=== PATIENT | male | born 1950 | race Caucasian/White ===

== ENCOUNTER 2018-08-10 22:08 | Emergency (ER) | payer MEDICARE ==
[~2018-08-10] VITALS: Ht 170.2 cm; Wt 127.0 kg
[~2018-08-10 22:08] MED LIST: ALBIPROI INH; ALBU3IS INH; ASPI81EC PO; ATEN25 PO; ATOR10 PO; ATOR20 PO; CEPH500 PO; CLOT1TL TOP; DOCU100 PO; DOXY100T53 PO; FENO145 PO; FISH1000 PO; FLUT.05NI; FURO40 PO; INSU7030P SUBQ; INSUAS7030 SC; INSULANI SUBQ; INSULANPEN SC; LEVSOD25 PO; LEVSOD50 PO; LISI5 PO; LORA10 PO; MECL12.5 PO; METO10 PO; METO50ER PO; MORP15ER PO; MORP30ER PO; NORT25 PO; OMEG1CAP30 PO; OMEP20ER PO; PHENY50CH PO; POTCHL10ER PO; SILD50TA PO; TAMS.4ER PO; TERA5 PO; ZOLP10 PO
[2018-08-10 23:18] LABS: BASOPHILS ABSOLUTE AUTO 0.16 K/mm3 (0.00-0.23); BASOPHILS PERCENT AUTO 1 % (0-2); EOSINOPHILS ABSOLUTE AUTO 0.41 K/mm3 (0.00-0.68); EOSINOPHILS PERCENT AUTO 3 % (0-6); Hematocrit 43.4 % (37.0-53.0); Hemoglobin 13.3 g/dL (13.5-17.5); IMMATURE GRAN ABSOLUTE AUTO 0.59 K/mm3 (0.00-0.10); IMMATURE GRAN PERCENT AUTO 5 % (0-1); LYMPHOCYTES ABSOLUTE AUTO 3.98 K/mm3 (0.84-5.20); LYMPHOCYTES PERCENT AUTO 33 % (21-46); MONOCYTES ABSOLUTE AUTO 1.06 K/mm3 (0.16-1.47); MONOCYTES PERCENT AUTO 9 % (4-13); Mean Corpuscular HGB 25.6 pg (26.0-34.0); Mean Corpuscular HGB Conc 30.6 g/dL (31.5-36.5); Mean Corpuscular Volume 84 fL (80-100); Mean Platelet Volume 10.1 fL (9.1-12.4); NEUTROPHILS ABSOLUTE AUTO 6.01 K/mm3 (1.96-9.15); NEUTROPHILS PERCENT AUTO 49 % (41-73); Platelet Count 193 K/mm3 (150-400); RDW Coefficient Variation 17.4 % (11.7-14.2); RDW Standard Deviation 52.7 fL (35.1-46.3); Red Blood Cell Count 5.19 M/mm3 (4.30-5.90); White Blood Cell Count 12.21 K/mm3 (4.00-11.30)
[2018-08-10 23:36] LABS: Alanine Aminotransfer (ALT/SGP 49 U/L (12-78); Albumin, Blood 3.1 g/dL (3.4-5.0); Albumin/Globulin Ratio 0.9 (0.8-1.8); Alk Phos 94 U/L (50-136); Anion Gap 10 mmol/L (6-16); Aspartate Aminotrans (AST/SGOT 32 U/L (12-37); Bilirubin, Total 0.5 mg/dL (0.1-1.0); Blood Urea Nitrogen 19 mg/dL (8-24); Bun/Creatinine Ratio 15.8 (12.0-20.0); CO2, Blood 21 mmol/L (21-32); Calcium, Blood 9.2 mg/dL (8.5-10.1); Chloride, Blood 105 mmol/L (98-108); Globulin, Blood 3.5 g/dL (2.2-4.0); Glomerular Filtration Rate >60 (60-); Glucose, Blood 174 mg/dL (70-99); Potassium, Blood 3.9 mmol/L (3.5-5.5); Sodium, Blood 136 mmol/L (136-145); Total Protein, Blood 6.6 g/dL (6.4-8.2)
== END 2018-08-11 01:38 | disposition home or self-care (01) ==
LOC: ER 22:08 → SURS 22:09 → MEDS 22:09 → SURS 08-11 00:26 → MEDS 08-11 00:26
PROVIDERS: Emergency Medicine
DX: R53.1 Weakness (principal); E11.9 Type 2 diabetes mellitus without complications; F41.9 Anxiety disorder, unspecified; J44.9 Chronic obstructive pulmonary disease, unspecified; Z88.8 Allergy status to other drugs, medicaments and biological substances; Z79.899 Other long term (current) drug therapy; Z79.82 Long term (current) use of aspirin; Z79.51 Long term (current) use of inhaled steroids; Z79.4 Long term (current) use of insulin; Z87.891 Personal history of nicotine dependence
CPT/HCPCS: 36415; 80053; 83605; 85025; 96365; 99285-25; J0295

== ENCOUNTER 2018-09-21 15:42 | Inpatient (IN) | payer OTHER, MEDICARE ==
[~2018-09-21] VITALS: Ht 175.3 cm; Wt 117.5 kg
[~2018-09-21 15:42] MED LIST changes: +FISH OIL + D31 EACH PO; -FISH1000 PO; -OMEP20ER PO; +OMEPRAZOLE MAGN20 MG PO
[2018-09-21 16:25] LABS: Calcium, Ionized (POC) 1.08 mmol/L (1.10-1.46); Chloride (POC) 111 mmol/L (98-108); Creatinine (POC) 5.4 mg/dL (0.8-1.3); Glucose (ISTAT POC) 148 mg/dL (70-99); Hemoglobin (POC) 10.2 g/dL (13.5-17.5); Potassium (POC) 6.4 mmol/L (3.5-5.5); Sodium (POC) 134 mmol/L (135-148); Total CO2 (POC) 17 mmol/L (21-32)
[2018-09-21 17:05] LABS: Albumin, Blood 2.5 g/dL (3.4-5.0); Albumin/Globulin Ratio 0.6 (0.8-1.8); Bilirubin, Total 0.8 mg/dL (0.1-1.0); Bun/Creatinine Ratio 16.2 (12.0-20.0); Calcium, Blood 8.2 mg/dL (8.5-10.1); Creatinine, Blood 4.93 mg/dL (0.60-1.20); Globulin, Blood 3.9 g/dL (2.2-4.0); Potassium, Blood 6.4 mmol/L (3.5-5.5); Total Protein, Blood 6.4 g/dL (6.4-8.2)
[2018-09-21 17:15] LABS: BASOPHILS ABSOLUTE AUTO 0.07 K/mm3 (0.00-0.23); BASOPHILS PERCENT AUTO 1 % (0-2); EOSINOPHILS ABSOLUTE AUTO 0.11 K/mm3 (0.00-0.68); EOSINOPHILS PERCENT AUTO 1 % (0-6); Hematocrit 33.9 % (37.0-53.0); Hemoglobin 9.8 g/dL (13.5-17.5); IMMATURE GRAN ABSOLUTE AUTO 0.27 K/mm3 (0.00-0.10); IMMATURE GRAN PERCENT AUTO 2 % (0-1); LYMPHOCYTES ABSOLUTE AUTO 5.67 K/mm3 (0.84-5.20); LYMPHOCYTES PERCENT AUTO 41 % (21-46); MONOCYTES ABSOLUTE AUTO 0.37 K/mm3 (0.16-1.47); MONOCYTES PERCENT AUTO 3 % (4-13); Mean Corpuscular HGB 25.7 pg (26.0-34.0); Mean Corpuscular HGB Conc 28.9 g/dL (31.5-36.5); Mean Corpuscular Volume 89 fL (80-100); Mean Platelet Volume 10.2 fL (9.1-12.4); NEUTROPHILS ABSOLUTE AUTO 7.36 K/mm3 (1.96-9.15); NEUTROPHILS PERCENT AUTO 53 % (41-73); Platelet Count 228 K/mm3 (150-400); RDW Coefficient Variation 18.2 % (11.7-14.2); RDW Standard Deviation 58.5 fL (35.1-46.3); Red Blood Cell Count 3.82 M/mm3 (4.30-5.90); White Blood Cell Count 13.85 K/mm3 (4.00-11.30)
[2018-09-21] MEDS ORDERED: ALLO300 PO (18:06)
[2018-09-21] MEDS ORDERED: CHLO25B PO (18:10)
[2018-09-21] MEDS ORDERED: CICLOPIROX TOP (18:11)
[2018-09-21] MEDS ORDERED: DULO30 (18:12)
[2018-09-21] MEDS ORDERED: FISH OIL 1,0001 EACH PO (18:12)
[2018-09-21] MEDS ORDERED: GEMF600 PO (18:12)
[2018-09-21] MEDS ORDERED: Hydroxyzine HCl50 MG (18:14)
[2018-09-21] MEDS ORDERED: LORA2 PO (18:15)
[2018-09-21] MEDS ORDERED: LIDO700A20 (18:15)
[2018-09-21] MEDS ORDERED: METO25ER PO (18:17)
[2018-09-21] MEDS ORDERED: METO50ER PO (18:18)
[2018-09-21] MEDS ORDERED: IMBRUVICA140 MG PO (18:42)
[2018-09-21] MEDS ORDERED: Bactrim Ds Tab1 EACH PO (18:42)
[2018-09-21 21:01] LABS: Source, Urine Clean Catch
[2018-09-21 21:07] LABS: Appearance, Urine Clear (Clear); Blood, Urine 5+ (Neg); Color, Urine Amber (P-Yellow); Glucose Qualitative, Urine Neg (Neg); Ketones, Urine Neg (Neg); Leukocyte Esterase, Urine 2+ (Neg); Nitrite, Urine Neg (Neg); Protein, Urine 2+ (Neg); Specific Gravity, Urine 1.025 (1.003-1.022); Urobilinogen, Urine 3+ (Normal)
[2018-09-21 21:08] LABS: Bilirubin, Urine 1+ (Neg)
[2018-09-21 21:17] LABS: Bacteria Few /hpf; Granular Casts Rare /lpf (0); Squamous Epithelial Cells Few /hpf (Few)
[2018-09-22 03:34] LABS: BASOPHILS ABSOLUTE AUTO 0.04 K/mm3 (0.00-0.23); BASOPHILS PERCENT AUTO 0 % (0-2); EOSINOPHILS ABSOLUTE AUTO 0.04 K/mm3 (0.00-0.68); EOSINOPHILS PERCENT AUTO 0 % (0-6); Hematocrit 31.7 % (37.0-53.0); Hemoglobin 9.5 g/dL (13.5-17.5); IMMATURE GRAN PERCENT AUTO 2 % (0-1); LYMPHOCYTES ABSOLUTE AUTO 4.41 K/mm3 (0.84-5.20); LYMPHOCYTES PERCENT AUTO 41 % (21-46); MONOCYTES ABSOLUTE AUTO 0.79 K/mm3 (0.16-1.47); MONOCYTES PERCENT AUTO 7 % (4-13); Mean Corpuscular Volume 87 fL (80-100); Mean Platelet Volume 10.4 fL (9.1-12.4); NEUTROPHILS ABSOLUTE AUTO 5.17 K/mm3 (1.96-9.15); NEUTROPHILS PERCENT AUTO 49 % (41-73); NRBC ABSOLUTE 0.02 K/mm3 (0.00-0.02); NRBC Auto 0.2 /100 WBC (0.0-0.2); Platelet Count 207 K/mm3 (150-400); RDW Coefficient Variation 17.9 % (11.7-14.2); RDW Standard Deviation 56.4 fL (35.1-46.3); Red Blood Cell Count 3.66 M/mm3 (4.30-5.90); White Blood Cell Count 10.65 K/mm3 (4.00-11.30)
[2018-09-22 03:54] LABS: Albumin, Blood 2.2 g/dL (3.4-5.0); Albumin/Globulin Ratio 0.6 (0.8-1.8); Bun/Creatinine Ratio 16.2 (12.0-20.0); Calcium, Blood 7.5 mg/dL (8.5-10.1); Creatinine, Blood 4.56 mg/dL (0.60-1.20); Globulin, Blood 3.6 g/dL (2.2-4.0); Potassium, Blood 5.1 mmol/L (3.5-5.5); Total Protein, Blood 5.8 g/dL (6.4-8.2)
[2018-09-22] MEDS ORDERED: LISI5 PO (12:43)
[2018-09-23 04:07] LABS: Hematocrit 32.3 % (37.0-53.0); Hemoglobin 9.9 g/dL (13.5-17.5)
[2018-09-23 04:36] LABS: Magnesium, Blood 2.2 mg/dL (1.6-2.4)
[2018-09-23 04:37] LABS: Albumin, Blood 2.4 g/dL (3.4-5.0); Anion Gap 10 mmol/L (6-16); Blood Urea Nitrogen 66 mg/dL (8-24); CO2, Blood 25 mmol/L (21-32); Calcium, Blood 8.6 mg/dL (8.5-10.1); Chloride, Blood 103 mmol/L (98-108); Creatinine, Blood 3.89 mg/dL (0.60-1.20); Glomerular Filtration Rate 16 (60-); Glucose, Blood 198 mg/dL (70-99); Phosphorus, Blood 4.4 mg/dL (2.5-4.9); Potassium, Blood 4.5 mmol/L (3.5-5.5); Sodium, Blood 138 mmol/L (136-145)
[2018-09-24 05:20] LABS: Hematocrit 31.6 % (37.0-53.0); Hemoglobin 9.4 g/dL (13.5-17.5); Mean Corpuscular HGB 24.9 pg (26.0-34.0); Mean Corpuscular HGB Conc 29.7 g/dL (31.5-36.5); Mean Platelet Volume 10.4 fL (9.1-12.4); NRBC ABSOLUTE 0.02 K/mm3 (0.00-0.02); NRBC Auto 0.1 /100 WBC (0.0-0.2); Platelet Count 256 K/mm3 (150-400); RDW Coefficient Variation 17.5 % (11.7-14.2); RDW Standard Deviation 53.4 fL (35.1-46.3); Red Blood Cell Count 3.78 M/mm3 (4.30-5.90)
[2018-09-24 05:39] LABS: Mean Corpuscular Volume 84 fL (80-100)
[2018-09-24 05:47] LABS: Albumin, Blood 2.5 g/dL (3.4-5.0); Anion Gap 10 mmol/L (6-16); Blood Urea Nitrogen 53 mg/dL (8-24); Bun/Creatinine Ratio 18.2 (12.0-20.0); CO2, Blood 27 mmol/L (21-32); Calcium, Blood 8.8 mg/dL (8.5-10.1); Chloride, Blood 103 mmol/L (98-108); Creatinine, Blood 2.91 mg/dL (0.60-1.20); Glomerular Filtration Rate 23 (60-); Glucose, Blood 155 mg/dL (70-99); Magnesium, Blood 2.1 mg/dL (1.6-2.4); Phosphorus, Blood 3.3 mg/dL (2.5-4.9); Potassium, Blood 4.1 mmol/L (3.5-5.5); Sodium, Blood 140 mmol/L (136-145)
[2018-09-24 05:57] LABS: BAND PERCENT MAN 2 % (0-8); BASOPHILS ABSOLUTE MAN 0.27 K/mm3 (0.00-0.23); BASOPHILS PERCENT MAN 2 % (0-2); EOSINOPHILS ABSOLUTE MAN 0.13 K/mm3 (0.00-0.68); EOSINOPHILS PERCENT MAN 1 % (0-6); LYMPHOCYTES ABSOLUTE MAN 3.69 K/mm3 (0.84-5.20); LYMPHOCYTES PERCENT MAN 27 % (21-46); MONOCYTES ABSOLUTE MAN 1.09 K/mm3 (0.16-1.47); MONOCYTES PERCENT MAN 8 % (4-13); MYELOCYTE ABSOLUTE MAN 0.27 K/mm3 (0.00-0.00); MYELOCYTE PERCENT MAN 2 % (0-0); NEUTROPHILS ABSOLUTE MAN 8.22 K/mm3 (1.96-9.15); SEG NEUTROPHILS PERCENT MAN 58 % (41-73); TOTAL CELLS COUNTED 100
[2018-09-25 05:40] LABS: Hematocrit 31.6 % (37.0-53.0); Hemoglobin 9.6 g/dL (13.5-17.5)
[2018-09-25 06:07] LABS: Magnesium, Blood 1.8 mg/dL (1.6-2.4)
[2018-09-25 06:10] LABS: Albumin, Blood 2.5 g/dL (3.4-5.0); Anion Gap 10 mmol/L (6-16); Blood Urea Nitrogen 46 mg/dL (8-24); Bun/Creatinine Ratio 19.2 (12.0-20.0); CO2, Blood 27 mmol/L (21-32); Calcium, Blood 8.9 mg/dL (8.5-10.1); Chloride, Blood 102 mmol/L (98-108); Glomerular Filtration Rate 29 (60-); Glucose, Blood 154 mg/dL (70-99); Phosphorus, Blood 2.7 mg/dL (2.5-4.9); Potassium, Blood 3.7 mmol/L (3.5-5.5); Sodium, Blood 139 mmol/L (136-145)
[2018-09-25] MEDS ORDERED: Synthroid25 MCG PO (14:34)
[2018-09-25] MEDS ORDERED: LEVFLO500 PO (14:35)
[2018-09-25] MEDS ORDERED: SACC250C PO (14:36)
[2018-09-25] MEDS ORDERED: BUME2 PO (14:36)
== END 2018-09-25 15:21 | disposition home or self-care (01) | DRG 871 ==
LOC: ER 15:42 → ICUW 18:54 → ICUE 18:54 → MEDS 18:54 → ICUE 20:10 → MEDS 09-23 17:37
PROVIDERS: Emergency Medicine; Hospitalist; Internal Medicine; Internal Medicine Nephrology
DX: A41.9 Sepsis, unspecified organism (principal); J18.9 Pneumonia, unspecified organism; G92 Toxic encephalopathy; N17.0 Acute kidney failure with tubular necrosis; J96.90 Respiratory failure, unspecified, unspecified whether with hypoxia or hypercapnia; E87.2 Acidosis; E87.1 Hypo-osmolality and hyponatremia; J44.0 Chronic obstructive pulmonary disease with (acute) lower respiratory infection; I13.0 Hypertensive heart and chronic kidney disease with heart failure and stage 1 through stage 4 chronic kidney disease, or unspecified chronic kidney disease; C34.91 Malignant neoplasm of unspecified part of right bronchus or lung; C91.10 Chronic lymphocytic leukemia of B-cell type not having achieved remission; D63.8 Anemia in other chronic diseases classified elsewhere; G47.33 Obstructive sleep apnea (adult) (pediatric); E78.5 Hyperlipidemia, unspecified; E87.5 Hyperkalemia; E03.9 Hypothyroidism, unspecified; I50.9 Heart failure, unspecified; N18.3 Chronic kidney disease, stage 3 (moderate); E11.22 Type 2 diabetes mellitus with diabetic chronic kidney disease; Z87.891 Personal history of nicotine dependence
CPT/HCPCS: 36415; 51702; 71045; 74150; 76770; 80047; 80053; 80069; 81001; 82140; 82330; 82947; 83605; 83735; 84132; 84145; 85014; 85018; 85025; 87086; 93005; 93010; 94644; 94660; 96361; 96374; 96375; 99285-25; C1751; J0456; J0610; J0696; J0881; J1650; J1815; J2060; J2405; J7030; J7050; J7060; J7070; J7120; P9041

== ENCOUNTER 2018-10-01 20:48 | Inpatient (IN) | payer OTHER, MEDICARE ==
[~2018-10-01] VITALS: Ht 167.6 cm; Wt 104.5 kg
[~2018-10-01 20:48] MED LIST changes: +ALLO300 PO; +BUME2 PO; +Bactrim Ds Tab1 EACH PO; +CHLO25B PO; +CICLOPIROX TOP; +DULO30; +FISH OIL 1,0001 EACH PO; +GEMF600 PO; +Hydroxyzine HCl50 MG; +IMBRUVICA140 MG PO; +LEVFLO500 PO; +LIDO700A20; +LORA2 PO; +METO25ER PO; +SACC250C PO; +Synthroid25 MCG PO
[2018-10-01] MEDS ORDERED: NITR.4SL SL (21:12)
[2018-10-01] MEDS ORDERED: Ciclopirox15 GM TP (21:12)
[2018-10-01] MEDS ORDERED: LORA2 PO (21:12)
[2018-10-01] MEDS ORDERED: FURO40 PO (21:13)
[2018-10-02 05:58] LABS: Bun/Creatinine Ratio 16.1 (12.0-20.0); Calcium, Blood 8.5 mg/dL (8.5-10.1); Creatinine, Blood 4.78 mg/dL (0.60-1.20); Potassium, Blood 4.8 mmol/L (3.5-5.5)
[2018-10-02] MEDS ORDERED: METO25ER PO (12:14)
[2018-10-02] MEDS ORDERED: LISI5 PO (12:16)
[2018-10-02] MEDS ORDERED: GEMF600 PO (12:19)
[2018-10-02] MEDS ORDERED: DULO30 PO (12:20)
[2018-10-02] MEDS ORDERED: MORP30ER PO (12:22)
[2018-10-02] MEDS ORDERED: Morphine Sulfat15 MG PO (12:26)
[2018-10-02] MEDS ORDERED: IMBRUVICA140 MG PO (12:28)
[2018-10-02] MEDS ORDERED: Novolog100 UNIT/2 SC (12:58)
[2018-10-02] MEDS ORDERED: ALBU2.5V5 (13:28)
[2018-10-03 04:35] LABS: BASOPHILS ABSOLUTE AUTO 0.08 K/mm3 (0.00-0.23); BASOPHILS PERCENT AUTO 1 % (0-2); EOSINOPHILS ABSOLUTE AUTO 0.11 K/mm3 (0.00-0.68); EOSINOPHILS PERCENT AUTO 1 % (0-6); Hematocrit 31.6 % (37.0-53.0); Hemoglobin 9.2 g/dL (13.5-17.5); IMMATURE GRAN ABSOLUTE AUTO 0.29 K/mm3 (0.00-0.10); IMMATURE GRAN PERCENT AUTO 2 % (0-1); LYMPHOCYTES PERCENT AUTO 26 % (21-46); MONOCYTES PERCENT AUTO 10 % (4-13); Mean Corpuscular HGB 25.2 pg (26.0-34.0); Mean Corpuscular HGB Conc 29.1 g/dL (31.5-36.5); Mean Platelet Volume 9.7 fL (9.1-12.4); NEUTROPHILS ABSOLUTE AUTO 8.91 K/mm3 (1.96-9.15); NEUTROPHILS PERCENT AUTO 61 % (41-73); NRBC ABSOLUTE 0.03 K/mm3 (0.00-0.02); NRBC Auto 0.2 /100 WBC (0.0-0.2); Platelet Count 406 K/mm3 (150-400); RDW Coefficient Variation 17.4 % (11.7-14.2); RDW Standard Deviation 55.2 fL (35.1-46.3); Red Blood Cell Count 3.65 M/mm3 (4.30-5.90); White Blood Cell Count 14.69 K/mm3 (4.00-11.30)
[2018-10-03 04:42] LABS: Mean Corpuscular Volume 87 fL (80-100)
[2018-10-03 05:00] LABS: Albumin, Blood 2.4 g/dL (3.4-5.0); Anion Gap 10 mmol/L (6-16); Blood Urea Nitrogen 66 mg/dL (8-24); Bun/Creatinine Ratio 16.6 (12.0-20.0); CO2, Blood 22 mmol/L (21-32); Calcium, Blood 9.1 mg/dL (8.5-10.1); Chloride, Blood 108 mmol/L (98-108); Creatinine, Blood 3.98 mg/dL (0.60-1.20); Glomerular Filtration Rate 16 (60-); Glucose, Blood 112 mg/dL (70-99); Phosphorus, Blood 4.9 mg/dL (2.5-4.9); Potassium, Blood 4.7 mmol/L (3.5-5.5); Sodium, Blood 140 mmol/L (136-145)
== END 2018-10-03 15:42 | disposition short-term general hospital (02) | DRG 682 ==
LOC: ER 20:48 → SURS 20:49 → ER 22:49 → SURS 22:49 → ICUW 10-03 08:34
PROVIDERS: Hospitalist; Internal Medicine
DX: N17.9 Acute kidney failure, unspecified (principal); G92 Toxic encephalopathy; C91.90 Lymphoid leukemia, unspecified not having achieved remission; I31.4 Cardiac tamponade; I10 Essential (primary) hypertension; E03.9 Hypothyroidism, unspecified; E78.5 Hyperlipidemia, unspecified; Z87.01 Personal history of pneumonia (recurrent); N18.3 Chronic kidney disease, stage 3 (moderate); Z79.82 Long term (current) use of aspirin; Z79.4 Long term (current) use of insulin; M10.9 Gout, unspecified; E87.5 Hyperkalemia; E87.70 Fluid overload, unspecified; M54.9 Dorsalgia, unspecified; I12.9 Hypertensive chronic kidney disease with stage 1 through stage 4 chronic kidney disease, or unspecified chronic kidney disease
CPT/HCPCS: 36415; 51702; 51798; 71046; 80048; 80069; 82947; 83880; 84484; 85025; 93005; 93010; 93306; 94640; 94760; 94762; 99285; J1644; J1940; J3010; J7030; J7040

== ENCOUNTER 2019-06-27 02:35 | Emergency (ER) | payer OTHER, MEDICARE ==
[~2019-06-27] VITALS: Ht 177.8 cm; Wt 102.1 kg
[~2019-06-27 02:35] MED LIST changes: +ALBU2.5V5; +Ciclopirox15 GM TP; +DULO30 PO; +Morphine Sulfat15 MG PO; +NITR.4SL SL; +Novolog100 UNIT/2 SC
== END 2019-06-27 04:10 | disposition home or self-care (01) ==
LOC: ER 02:35
DX: M54.5 Low back pain (principal); D64.9 Anemia, unspecified; E11.9 Type 2 diabetes mellitus without complications; I10 Essential (primary) hypertension; E03.9 Hypothyroidism, unspecified; E78.5 Hyperlipidemia, unspecified; Z88.8 Allergy status to other drugs, medicaments and biological substances; Z79.82 Long term (current) use of aspirin; Z79.899 Other long term (current) drug therapy; Z79.4 Long term (current) use of insulin; Z79.891 Long term (current) use of opiate analgesic; Z87.891 Personal history of nicotine dependence
CPT/HCPCS: 96372; 99283-25; J1170; J1630

== ENCOUNTER 2019-07-05 00:36 | Emergency (ER) | payer OTHER, MEDICARE ==
[~2019-07-05] VITALS: Ht 165.1 cm; Wt 100.7 kg
== END 2019-07-05 02:36 | disposition home or self-care (01) ==
LOC: ER 00:36
DX: G89.3 Neoplasm related pain (acute) (chronic) (principal); E11.9 Type 2 diabetes mellitus without complications; F41.9 Anxiety disorder, unspecified; Z85.830 Personal history of malignant neoplasm of bone; Z85.118 Personal history of other malignant neoplasm of bronchus and lung; Z85.6 Personal history of leukemia; Z87.891 Personal history of nicotine dependence; Z88.8 Allergy status to other drugs, medicaments and biological substances; Z79.899 Other long term (current) drug therapy; Z79.82 Long term (current) use of aspirin; Z79.4 Long term (current) use of insulin; Z79.891 Long term (current) use of opiate analgesic
CPT/HCPCS: 96372; 99283-25; J1170; J1200; J1630